=== PATIENT | female | born 1965 | race African-American/Black ===

== ENCOUNTER 2017-03-08 23:41 | Inpatient (IN) | payer MEDICAID, OTHER ==
[~2017-03-08] VITALS: Ht 154.9 cm; Wt 64.4 kg
[~2017-03-08 23:41] MED LIST: NO MEDS
[2017-03-09 03:24] LABS: BASOPHILS % 0.3 % (0.0-2.0); EOSINOPHILS % 8.5 % (0.0-5.0); HEMATOCRIT. 34.5 % (36.0-48.0); HEMOGLOBIN. 12.1 g/dL (12.0-16.0); LYMPHOCYTES % 57.8 % (20.0-50.0); MEAN CORPUSCULAR HEMOGLOBIN 30.9 pg (28.0-32.0); MEAN PLATELET VOLUME 7.9 fl (7.4-10.4); MONOCYTES % 8.1 % (2.0-8.0); NEUTROPHILS % 25.3 % (40.0-76.0); PLATELET 257 x1000/uL (130-400); RED BLOOD CELL COUNT 3.93 mill/uL (4.2-5.4)
[2017-03-09 03:41] LABS: CARBON DIOXIDE 24 mEq/L (21-32); CHLORIDE 105 mEq/L (98-107); TROPONIN I < 0.02 ng/mL (0.00-0.04)
[2017-03-09] MEDS ORDERED: CLONIDINE 0.1MG TABLET PO PRN (09:00)
[2017-03-09] MEDS ORDERED: ONDANSETRON HCL 4MG/2ML VIAL IV PRN (09:00)
[2017-03-09] MEDS ORDERED: ACETAMINOPHEN 325MG TABLET PO PRN (09:00)
[2017-03-09] MEDS ORDERED: IPRATROPIUM/ALBUTEROL 0.5-3(2.5)MG/3ML NEB INH PRN (09:00)
[2017-03-09] MEDS ORDERED: MAGNESIUM/ALUMINUM HYDROXIDE/SIMETHICONE 30ML UDC PO PRN (09:00)
[2017-03-09] MEDS: ASPIRIN 81MG EC TABLET PO SCH (10:29)
[2017-03-09] MEDS: HYDROCODONE/ACETAMINOPHEN 5/325MG TABLET PO PRN ×2 (10:29→15:20)
[2017-03-09] MEDS: METOPROLOL TARTRATE 25MG TABLET PO SCH ×2 (13:55→21:00)
[2017-03-09] MEDS ORDERED: DEXTROSE 50% WATER 50ML SYRINGE IV PRN (14:00)
[2017-03-09] MEDS ORDERED: MORPHINE SULFATE 4 MG/ML CPJ (NOT FOR IM USE) IV PRN (14:00)
[2017-03-09] MEDS: ENOXAPARIN 40MG/0.4ML SYR SUBCUT SCH (15:22)
[2017-03-09 16:00] VITALS: BP_SYST 103; BP_SYST 109; BP_DIAS 69; BP_DIAS 79
[2017-03-09] MEDS ORDERED: METF500T4 PO (16:44)
[2017-03-09] MEDS: BLOOD SUGAR DIAGNOSTIC STRIP TEST SCH ×2 (16:45→21:04)
[2017-03-09] MEDS ORDERED: LISI10TA5 PO (16:47)
[2017-03-09] MEDS: INSULIN LISPRO 100 UNITS/ML SUBCUT SCH ×2 (17:15→21:00)
[2017-03-09] MEDS: MORPHINE SULFATE 2 MG/ML CPJ (NOT FOR IM USE) IV PRN (18:05)
[2017-03-09 18:32] LABS: CARBON DIOXIDE 29 mEq/L (21-32); CHLORIDE 107 mEq/L (98-107); CREATINE KINASE 134 IU/L (26-192); CREATINE KINASE MB FRACTION 1.1 ng/mL (0.5-3.6); TROPONIN I < 0.02 ng/mL (0.00-0.04)
[2017-03-09 20:00] VITALS: BP 101/64
[2017-03-09 21:33] LABS: CLARITY URINE CLOUDY (CLEAR); COLOR URINE YELLOW (YELLOW); GLUCOSE URINE NEGATIVE (NEGATIVE); KETONES URINE NEGATIVE (NEGATIVE); LEUKOCYTE ESTERASE URINE TRACE (NEGATIVE); NITRITE URINE NEGATIVE (NEGATIVE); OCCULT BLOOD URINE NEGATIVE (NEGATIVE); PROTEIN URINE NEGATIVE (NEGATIVE); SPECIFIC GRAVITY URINE 1.025 (1.005-1.030)
[2017-03-09 21:53] LABS: *AMPHETAMINES SCREEN URINE NEGATIVE (NEGATIVE); *BARBITURATES SCREEN URINE NEGATIVE (NEGATIVE); *BENZODIAZEPINES SCREEN URINE NEGATIVE (NEGATIVE); *COCAINE SCREEN URINE NEGATIVE (NEGATIVE); CANNABINOID URINE SCREEN NEGATIVE (NEGATIVE); METHADONE URINE SCREEN NEGATIVE (NEGATIVE); OPIATES URINE SCREEN PRESUMTIVE POSITIVE (NEGATIVE); PHENCYCLIDINE URINE SCREEN NEGATIVE (NEGATIVE)
[2017-03-10] VITALS (7 sets, daily range): BP systolic 97–130; BP diastolic 57–82
[2017-03-10 02:54] LABS: CREATINE KINASE 127 IU/L (26-192); CREATINE KINASE MB FRACTION < 0.5 ng/mL (0.5-3.6); TROPONIN I < 0.02 ng/mL (0.00-0.04)
[2017-03-10] MEDS: BLOOD SUGAR DIAGNOSTIC STRIP TEST SCH ×4 (06:12→21:38)
[2017-03-10] MEDS: MORPHINE SULFATE 2 MG/ML CPJ (NOT FOR IM USE) IV PRN ×3 (06:14→12:11)
[2017-03-10] MEDS: INSULIN LISPRO 100 UNITS/ML SUBCUT SCH ×4 (06:17→21:00)
[2017-03-10 06:51] LABS: BASOPHILS % 0.5 % (0.0-2.0); EOSINOPHILS % 9.7 % (0.0-5.0); HEMATOCRIT. 33.5 % (36.0-48.0); HEMOGLOBIN. 11.9 g/dL (12.0-16.0); LYMPHOCYTES % 58.9 % (20.0-50.0); MEAN CORPUSCULAR HEMOGLOBIN 31.1 pg (28.0-32.0); MEAN CORPUSCULAR VOLUME 87.6 fL (81.0-99.0); NEUTROPHILS % 22.9 % (40.0-76.0); PLATELET 233 x1000/uL (130-400); RED BLOOD CELL COUNT 3.82 mill/uL (4.2-5.4); RED CELL DISTRIBUTION WIDTH 12.7 % (11.6-14.6)
[2017-03-10 07:36] LABS: CARBON DIOXIDE 26 mEq/L (21-32); CHLORIDE 107 mEq/L (98-107); HDL CHOLESTEROL 38 mg/dL (40-59); LDL CHOLESTEROL 116 mg/dL (5-100)
[2017-03-10] MEDS: METFORMIN HCL 500MG TABLET PO SCH (08:45)
[2017-03-10] MEDS: LISINOPRIL 10MG TABLET PO SCH (08:46)
[2017-03-10] MEDS: ENOXAPARIN 40MG/0.4ML SYR SUBCUT SCH (08:46)
[2017-03-10] MEDS: ASPIRIN 81MG EC TABLET PO SCH (08:46)
[2017-03-10] MEDS: HYDROCODONE/ACETAMINOPHEN 5/325MG TABLET PO PRN ×2 (08:46→21:48)
[2017-03-10] MEDS: METOPROLOL TARTRATE 25MG TABLET PO SCH ×3 (08:51→21:48)
[2017-03-10] MEDS ORDERED: ALBU18HF2 IH (09:03)
[2017-03-10] MEDS: BACLOFEN 10MG TABLET PO SCH ×2 (16:14→21:38)
[2017-03-10] MEDS ORDERED: ATORVASTATIN CALCIUM 10MG TABLET PO SCH (21:00)
[2017-03-11] VITALS: BP 98/62
[2017-03-11 04:00] VITALS: BP 118/76
[2017-03-11 06:19] LABS: CARBON DIOXIDE 24 mEq/L (21-32); CHLORIDE 105 mEq/L (98-107)
[2017-03-11 06:20] LABS: BASOPHILS % 0.4 % (0.0-2.0); EOSINOPHILS % 10.1 % (0.0-5.0); HEMATOCRIT. 36.2 % (36.0-48.0); HEMOGLOBIN. 12.9 g/dL (12.0-16.0); LYMPHOCYTES % 53.1 % (20.0-50.0); MEAN CORPUSCULAR HEMOGLOBIN 31.5 pg (28.0-32.0); MEAN CORPUSCULAR VOLUME 88.3 fL (81.0-99.0); MEAN PLATELET VOLUME 8.1 fl (7.4-10.4); MONOCYTES % 9.1 % (2.0-8.0); NEUTROPHILS % 27.3 % (40.0-76.0); PLATELET 253 x1000/uL (130-400); RED BLOOD CELL COUNT 4.09 mill/uL (4.2-5.4); RED CELL DISTRIBUTION WIDTH 12.8 % (11.6-14.6)
[2017-03-11] MEDS: INSULIN LISPRO 100 UNITS/ML SUBCUT SCH ×2 (06:30→12:15)
[2017-03-11] MEDS: BLOOD SUGAR DIAGNOSTIC STRIP TEST SCH ×2 (06:30→12:21)
[2017-03-11 08:00] VITALS: BP 122/66
[2017-03-11] MEDS: METOPROLOL TARTRATE 25MG TABLET PO SCH (08:23)
[2017-03-11] MEDS: METFORMIN HCL 500MG TABLET PO SCH (08:23)
[2017-03-11] MEDS: ASPIRIN 81MG EC TABLET PO SCH (08:23)
[2017-03-11] MEDS: LISINOPRIL 10MG TABLET PO SCH (08:23)
[2017-03-11] MEDS: HYDROCODONE/ACETAMINOPHEN 5/325MG TABLET PO PRN (08:24)
[2017-03-11] MEDS: BACLOFEN 10MG TABLET PO SCH (08:27)
[2017-03-11] MEDS: ENOXAPARIN 40MG/0.4ML SYR SUBCUT SCH (08:27)
[2017-03-11 12:25] VITALS: BP 115/71
[2017-03-11 14:53] VITALS: BP 115/71
== END 2017-03-11 15:45 | disposition home or self-care (01) | DRG 198 ==
LOC: ER 23:41 → 5WST 03-09 06:23 → EDBEDREQTM 03-09 06:27 → EDBEDREQ 03-09 06:27 → ENRESERV 03-09 12:30
PROVIDERS: ADMIT Internal Medicine; ATTEND Internal Medicine
DX: I24.9 Acute ischemic heart disease, unspecified (principal); I10 Essential (primary) hypertension; E11.9 Type 2 diabetes mellitus without complications; G89.29 Other chronic pain; M54.5 Low back pain; R79.1 Abnormal coagulation profile; Z79.84 Long term (current) use of oral hypoglycemic drugs; Z79.899 Other long term (current) drug therapy; Z86.73 Personal history of transient ischemic attack (TIA), and cerebral infarction without residual deficits; Z72.89 Other problems related to lifestyle
CPT/HCPCS: 36415; 70450; 71010; 78582; 80048; 80053; 80061; 80305; 81001; 82550; 82553; 82962; 83880; 84443; 84484; 85025; 85379; 87086; 93005; 93306; 93970; 94640; 97162; 99285; A9558; J1650; J2270; J7620

== ENCOUNTER 2018-09-27 01:40 | Emergency (ER) | payer OTHER ==
[~2018-09-27] VITALS: Ht 154.9 cm; Wt 66.0 kg
[~2018-09-27 01:40] MED LIST changes: +ALBU18HF2 IH; +LISI10TA5 PO; +METF-414 PO; -NO MEDS
[2018-09-27] MEDS ORDERED: IBUPROFEN 800MG TABLET PO ONE (04:00)
[2018-09-27 04:07] VITALS: BP 131/79
== END 2018-09-27 05:10 | disposition home or self-care (01) ==
LOC: ER 01:40
DX: M25.531 Pain in right wrist (principal); R10.9 Unspecified abdominal pain; I10 Essential (primary) hypertension; V49.9XXA Car occupant (driver) (passenger) injured in unspecified traffic accident, initial encounter; Y93.89 Activity, other specified; Y92.488 Other paved roadways as the place of occurrence of the external cause
CPT/HCPCS: 82962; 99282